=== PATIENT | female | born 1970 | race Caucasian/White ===

== ENCOUNTER 2017-09-02 11:22 | Observation (INO) ==
[2017-09-02] MEDS ORDERED: Ondansetron 4 MG/2 ML VIAL IVP ONE (11:58)
[2017-09-02] MEDS ORDERED: 0.9 % Sodium Chloride 1,000 ML IVC ONE ×2 (11:58→14:04)
--- NOTE | 2017-09-02 12:07 | Emergency Department Note ---
Disposition Clinical Impression: Pyelonephritis Disposition: Admitted As Inpatient Condition: Fair Time of Disposition: 15:10 Abdominal Pain HPI - General Chief Complaint: ED Abdominal Pain Time Seen by Provider: 09/02/17 11:45 Source: patient Nursing Notes Reviewed: Yes Vital Signs Reviewed: Yes - History of Present Illness HPI Narrative: For several weeks Miss Puente has had some right-sided abdominal pain it is worse the last couple of days especially in the right lower portion of the abdomen. She also had nausea vomiting and diarrhea. She noticed the onset of all these symptoms about the same time. Normal bowel habits are once and formed. She has had too numerous to count episodes of diarrhea stool is green and black last couple of days. She still feeling nauseated and has had multiple episodes of emesis. No relief with the belly pain after or during vomiting or diarrhea. No urinary symptoms. She was having some stinging and frequency when she was diagnosed with a urinary tract infection about a month ago and finished 10 days of Cipro last week. She has been dizzy and lightheaded and thinks she might a passed out once or twice in the last couple of days. Virtually no by mouth intake nor she been able to sleep for the last couple of days. She called the squad to bring her here at [facility] for evaluation this morning. She is a diabetic has been for 5 years started out on pills but now is on insulin area and she has an indwelling port that she shows me regarding her history of numerous blood draws. She tells me that she was at [facility] in [place] a couple of months ago but cannot remember why she was transferred there from here at [place]. (Record review does give some evidence of a psychiatric transfer to [place] earlier this year). She tells me her last CAT scan was just a couple of months ago on her abdomen at an outside hospital. (Record review showed 2 CAT scans here so far this year). Pain Scale: 9 - Related Data Home Medications Medication Instructions Recorded Confirmed Gabapentin [Neurontin] 800 mg PO TID 06/09/16 09/02/17 Insulin DETEMIR [Levemir] 45 unit SQ DAILY 06/09/16 09/02/17 Insulin LISPRO [HumaLOG] 0 units SQ TIDAC PRN 06/09/16 09/02/17 ALPRAZolam [Xanax 0.5 MG Tablet] 2 tab PO BID PRN 10/20/16 09/02/17 Allergies Allergy/AdvReac Type Severity Reaction Status Date / Time butorphanol [From Stadol] Allergy Difficulty Verified 09/02/17 15:11 Breathing diflunisal [From Dolobid] Allergy Itching Verified 09/02/17 15:11 meperidine [From Demerol] Allergy Difficulty Verified 09/02/17 15:11 Breathing nalbuphine [From Nubain] Allergy Difficulty Verified 09/02/17 15:11 Breathing Oxycodone [From Percocet] Allergy Itching Verified 09/02/17 15:11 Sulfa (Sulfonamide Allergy Rash Verified 09/02/17 15:11 Antibiotics) tramadol Allergy Itching Verified 09/02/17 15:11 Constitutional: Denies: fever, chills Eyes: Denies: vision change ENT ED: Denies: throat pain, congestion Cardiovascular: Denies: chest pain, palpitations, dyspnea on exertion Respiratory: Denies: cough Gastrointestinal: Reports: abdominal pain, nausea, vomiting, diarrhea, melena. Denies: hematochezia Genitourinary: Denies: urgency, dysuria, frequency, hematuria Musculoskeletal: Reports: back pain (Some radiation of the right-sided pain to the right flank) Integumentary: Denies: rash, lesions Neurological: Reports: other (Dizziness and lightheadedness as per history of present illness) Psychiatric: Reports: anxiety (By history for which she takes Xanax) Endocrine: Reports: fatigue Hematological/Lymphatic: Denies: easy bruising Abdominal Pain PMH - Past Medical History Medical history: Reports: arthritis, diabetes, GERD, kidney stones, osteoporosis , peripheral artery disease, TIA, other Female Surgical History: Reports: appendectomy, cholecystectomy, hysterectomy, orthopedic, other, other LICENSED CLINICIAN history: Reports: no LICENSED CLINICIAN history Psychiatric history: Reports: anxiety, depression - Social History Smoking status: Never smoker Alcohol use: Reports: none Drug use: Reports: none Physical Exam - General Limitations: no limitations General appearance: alert, in no apparent distress - Head Head exam: atraumatic, normocephalic - Eye Eye exam: Present: normal appearance. Absent: scleral icterus, conjunctival injection - ENT ENT exam: mucous membranes dry, normal external ear exam - Neck Neck exam: Present: normal inspection. Absent: lymphadenopathy - Chest Chest inspection: Present: normal inspection, symmetric chest wall rise - Respiratory Respiratory exam: Present: normal lung sounds bilaterally. Absent: respiratory distress, wheezes, stridor - Cardiovascular Cardiovascular exam: Present: regular rate, normal rhythm, normal heart sounds. Absent: systolic murmur, diastolic murmur - Abdominal Exam Abdominal exam: Present: soft, guarding (Voluntary right lower quadrant), normal bowel sounds. Absent: distention Abdominal tenderness: Present: RLQ - Extremities Exam Extremities exam: Present: normal inspection. Absent: pedal edema - Back Exam Back exam: Present: CVA tenderness (R) (Mild. Left CVA not percussed secondary to history of rib fractures.) - Neurological Exam Neurological exam: Present: alert, oriented X3 - Psychiatric Psychiatric exam: Present: normal affect, normal mood - Skin Skin exam: Present: warm, dry, other (Abrasion left wrist which appears to be somewhat excoriated. Hemostatic. No surrounding erythema.) Course Vital Signs Temperature 98.1 F 09/02/17 11:32 Pulse Rate 100 09/02/17 11:32 Respiratory Rate 18 09/02/17 11:32 Blood Pressure 152/77 09/02/17 11:32 O2 Sat by Pulse Oximetry 97 09/02/17 11:32 Temperature 98.1 F 09/02/17 11:32 Pulse Rate 100 09/02/17 11:32 Respiratory Rate 18 09/02/17 11:32 Blood Pressure 152/77 09/02/17 11:32 O2 Sat by Pulse Oximetry 97 09/02/17 11:32 Oxygen Delivery Oxygen Delivery Room Air Abdominal Pain - MDM Narrative Medical decision making narrative: Pyelonephritis. This is the most likely explanation for her symptoms today. Certainly the flank pain radiating to the right side of the abdomen in the absence of an appendix with the findings on urinalysis are suggestive of this diagnosis. She was given 1 g of Rocephin here in the emergency department. Regarding her pain and discomfort she made a couple of request for that. On review of her allergy list however I did inform her that there does not appear to be any safe choice for pain medications. We did review Toradol and I also told her the generic name. She has no recollection of ever receiving this much less having any difficulty breathing. She received 15 mg here in the emergency department and tolerated that well with no untoward effects just prior to transfer to the floor.. Anemia. This appears to have been chronic over several years. There is history of erosive esophagitis that seems to a resolved on follow-up endoscopy upon records review. She is not on an aspirin. We will use low-dose Toradol for pain relief as this is an NSAID. It appears as though she is a candidate for a colonoscopy as this anemia at its current level is undiagnosed and thus far. Certainly if the right lower quadrant pain does not resolve she might be a candidate for more prompt colonoscopy than can be arranged as an outpatient. We will hold heparin and instead put pneumatic stockings on for DVT prophylaxis. Diabetes. She does have a history of poor control. She was 252 here in the emergency department with no evidence of acidosis. We will continue her long acting insulin with a sliding scale as an inpatient. - Medical Records Medical records reviewed: Yes I reviewed the patient's medical records. - Lab Data Lab results reviewed: Yes I reviewed the patient's lab results. Result diagrams: 09/02/17 12:35 09/02/17 12:35 Lab Results 09/02/17 09/02/17 09/02/17 Range/Units 12:01 12:35 12:35 WBC 7.9 (4.3-11.1) K/mcL RBC 3.39 L (3.82-4.97) M/mcL Hgb 9.7 L (11.5-15.4) g/dL Hct 29.6 L (35.3-44.9) % MCV 87.3 (83.0-100.0) fL MCH 28.6 (28.0-33.3) pg MCHC 32.8 (31.6-35.5) g/dL RDW 15.9 H (11.5-14.5) % Plt Count 389 (140-400) K/mcL MPV 8.8 L (9.4-12.4) fL Immature Gran % 0.5 (0-4) % Seg Neutrophils % 69.3 % Lymphocytes % 18.0 % Monocytes % 6.9 % Eosinophils % 4.8 % Basophils % 0.5 % Neutrophils # 5.5 (1.6-8.9) K/mcL Lymphocytes # 1.4 (0.6-4.6) K/mcL Monocytes # 0.6 (0.0-1.3) K/mcL Eosinophils # 0.4 (0.0-0.6) K/mcL Basophils # 0.0 (0.0-0.2) K/mcL VBG pH (7.32-7.42) pH Units VBG pCO2 (41-51) mmHg VBG pO2 (25-50) mmHg VBG HCO3 (21-27) mEq/L VBG Lactic Acid (0.5-2.2) mmol/L Sodium (136-145) mEq/L Potassium (3.5-5.1) mEq/L Chloride (98-107) mEq/L Carbon Dioxide (23-29) mEq/L BUN (6-20) mg/dL Creatinine (0.60-1.20) mg/dL Est GFR ( Amer) (> 60) Est GFR (Non-Af Amer) (> 60) BUN/Creatinine Ratio (6-26) Glucose (70-105) mg/dL Calculated Osmolality (280-300) Lactic Acid 2.7 H (0.5-2.2) mmol/L Calcium (8.6-10.3) mg/dL Total Bilirubin (0.3-1.0) mg/dL AST (13-39) Units/L ALT (7-52) Units/L Alkaline Phosphatase (34-104) Units/L Troponin I (< 0.04) ng/mL Serum Total Protein (6.4-8.9) g/dL Albumin (3.5-5.7) g/dL Globulin (2.4-3.5) g/dL Albumin/Globulin Ratio (1.1-2.2) Beta-Hydroxybutyric Acd (0.02-0.27) mmol/L TSH (0.340-5.600) mcIU/mL Urine Color (Yellow) Urine Clarity (Clear) Urine pH (5.0-8.0) pH Units Ur Specific [place] (1.010-1.025) Urine Protein (Neg-Trace) mg/dL Urine Glucose (UA) (Normal) mg/dL Urine Ketones (Negative) mg/dL Urine Blood (Negative) Urine Nitrite (Negative) Urine Bilirubin (Negative) Urine Urobilinogen (Normal) mg/dL Ur Leukocyte Esterase (Negative) Urine Microscopic RBC (0-3) per hpf Urine Microscopic WBC (0-3) per hpf Ur Squamous Epith Cells (None-Few) per lpf Urine Bacteria (None-Few) per hpf Ur Culture Indicated? (NO) Urine Test Negative (Negative) Urine Opiates Screen (Jjbzfx=778) ng/mL Ur Barbiturates Screen (Ssagbz=191) ng/mL Ur Phencyclidine Scrn (Cutoff=25) ng/mL Ur Amphetamines Screen (Uwiydr=2457) ng/mL U Benzodiazepines Scrn (Ksmtbc=957) ng/mL Urine Cocaine Screen (Cutoff= 300) ng/mL U Marijuana (THC) Screen (Cutoff = 50) ng/mL 09/02/17 09/02/17 09/02/17 Range/Units 12:35 12:35 12:35 WBC (4.3-11.1) K/mcL RBC (3.82-4.97) M/mcL Hgb (11.5-15.4) g/dL Hct (35.3-44.9) % MCV (83.0-100.0) fL MCH (28.0-33.3) pg MCHC (31.6-35.5) g/dL RDW (11.5-14.5) % Plt Count (140-400) K/mcL MPV (9.4-12.4) fL Immature Gran % (0-4) % Seg Neutrophils % % Lymphocytes % % Monocytes % % Eosinophils % % Basophils % % Neutrophils # (1.6-8.9) K/mcL Lymphocytes # (0.6-4.6) K/mcL Monocytes # (0.0-1.3) K/mcL Eosinophils # (0.0-0.6) K/mcL Basophils # (0.0-0.2) K/mcL VBG pH (7.32-7.42) pH Units VBG pCO2 (41-51) mmHg VBG pO2 (25-50) mmHg VBG HCO3 (21-27) mEq/L VBG Lactic Acid (0.5-2.2) mmol/L Sodium 129 L (136-145) mEq/L Potassium 3.9 (3.5-5.1) mEq/L Chloride 94 L (98-107) mEq/L Carbon Dioxide 25 (23-29) mEq/L BUN 6 (6-20) mg/dL Creatinine 0.75 (0.60-1.20) mg/dL Est GFR ( Amer) > 60 (> 60) Est GFR (Non-Af Amer) > 60 (> 60) BUN/Creatinine Ratio 8 (6-26) Glucose 252 H (70-105) mg/dL Calculated Osmolality 274 L (280-300) Lactic Acid (0.5-2.2) mmol/L Calcium 9.0 (8.6-10.3) mg/dL Total Bilirubin 0.3 (0.3-1.0) mg/dL AST 17 (13-39) Units/L ALT 11 (7-52) Units/L Alkaline Phosphatase 215 H (34-104) Units/L Troponin I < 0.03 (< 0.04) ng/mL Serum Total Protein 7.5 (6.4-8.9) g/dL Albumin 3.6 (3.5-5.7) g/dL Globulin 3.9 H (2.4-3.5) g/dL Albumin/Globulin Ratio 0.9 L (1.1-2.2) Beta-Hydroxybutyric Acd < 0.10 (0.02-0.27) mmol/L TSH 0.903 (0.340-5.600) mcIU/mL Urine Color (Yellow) Urine Clarity (Clear) Urine pH (5.0-8.0) pH Units Ur Specific [place] (1.010-1.025) Urine Protein (Neg-Trace) mg/dL Urine Glucose (UA) (Normal) mg/dL Urine Ketones (Negative) mg/dL Urine Blood (Negative) Urine Nitrite (Negative) Urine Bilirubin (Negative) Urine Urobilinogen (Normal) mg/dL Ur Leukocyte Esterase (Negative) Urine Microscopic RBC (0-3) per hpf Urine Microscopic WBC (0-3) per hpf Ur Squamous Epith Cells (None-Few) per lpf Urine Bacteria (None-Few) per hpf Ur Culture Indicated? (NO) Urine Test (Negative) Urine Opiates Screen (Fbxjkt=231) ng/mL Ur Barbiturates Screen (Eaasoe=213) ng/mL Ur Phencyclidine Scrn (Cutoff=25) ng/mL Ur Amphetamines Screen (Xeukym=4504) ng/mL U Benzodiazepines Scrn (Xqhiim=330) ng/mL Urine Cocaine Screen (Cutoff= 300) ng/mL U Marijuana (THC) Screen (Cutoff = 50) ng/mL 09/02/17 09/02/17 09/02/17 Range/Units 13:15 13:21 14:19 WBC (4.3-11.1) K/mcL RBC (3.82-4.97) M/mcL Hgb (11.5-15.4) g/dL Hct (35.3-44.9) % MCV (83.0-100.0) fL MCH (28.0-33.3) pg MCHC (31.6-35.5) g/dL RDW (11.5-14.5) % Plt Count (140-400) K/mcL MPV (9.4-12.4) fL Immature Gran % (0-4) % Seg Neutrophils % % Lymphocytes % % Monocytes % % Eosinophils % % Basophils % % Neutrophils # (1.6-8.9) K/mcL Lymphocytes # (0.6-4.6) K/mcL Monocytes # (0.0-1.3) K/mcL Eosinophils # (0.0-0.6) K/mcL Basophils # (0.0-0.2) K/mcL VBG pH 7.42 (7.32-7.42) pH Units VBG pCO2 38 L (41-51) mmHg VBG pO2 39 (25-50) mmHg VBG HCO3 24 (21-27) mEq/L VBG Lactic Acid 2.7 H (0.5-2.2) mmol/L Sodium (136-145) mEq/L Potassium (3.5-5.1) mEq/L Chloride (98-107) mEq/L Carbon Dioxide (23-29) mEq/L BUN (6-20) mg/dL Creatinine (0.60-1.20) mg/dL Est GFR ( Amer) (> 60) Est GFR (Non-Af Amer) (> 60) BUN/Creatinine Ratio (6-26) Glucose (70-105) mg/dL Calculated Osmolality (280-300) Lactic Acid (0.5-2.2) mmol/L Calcium (8.6-10.3) mg/dL Total Bilirubin (0.3-1.0) mg/dL AST (13-39) Units/L ALT (7-52) Units/L Alkaline Phosphatase (34-104) Units/L Troponin I (< 0.04) ng/mL Serum Total Protein (6.4-8.9) g/dL Albumin (3.5-5.7) g/dL Globulin (2.4-3.5) g/dL Albumin/Globulin Ratio (1.1-2.2) Beta-Hydroxybutyric Acd (0.02-0.27) mmol/L TSH (0.340-5.600) mcIU/mL Urine Color Yellow (Yellow) Urine Clarity Clear (Clear) Urine pH 5.0 (5.0-8.0) pH Units Ur Specific [place] <= 1.005 L (1.010-1.025) Urine Protein Negative (Neg-Trace) mg/dL Urine Glucose (UA) Normal (Normal) mg/dL Urine Ketones Negative (Negative) mg/dL Urine Blood Trace-lysed H (Negative) Urine Nitrite Negative (Negative) Urine Bilirubin Negative (Negative) Urine Urobilinogen Normal (Normal) mg/dL Ur Leukocyte Esterase Large H (Negative) Urine Microscopic RBC 3-5 H (0-3) per hpf Urine Microscopic WBC 50-100 H (0-3) per hpf Ur Squamous Epith Cells Few (None-Few) per lpf Urine Bacteria Many H (None-Few) per hpf Ur Culture Indicated? YES A (NO) Urine Test (Negative) Urine Opiates Screen (Tkzzob=076) ng/mL Ur Barbiturates Screen (Hqebcd=834) ng/mL Ur Phencyclidine Scrn (Cutoff=25) ng/mL Ur Amphetamines Screen (Yqqghn=6805) ng/mL U Benzodiazepines Scrn (Wiquwq=591) ng/mL Urine Cocaine Screen (Cutoff= 300) ng/mL U Marijuana (THC) Screen (Cutoff = 50) ng/mL 09/02/17 Range/Units 14:19 WBC (4.3-11.1) K/mcL RBC (3.82-4.97) M/mcL Hgb (11.5-15.4) g/dL Hct (35.3-44.9) % MCV (83.0-100.0) fL MCH (28.0-33.3) pg MCHC (31.6-35.5) g/dL RDW (11.5-14.5) % Plt Count (140-400) K/mcL MPV (9.4-12.4) fL Immature Gran % (0-4) % Seg Neutrophils % % Lymphocytes % % Monocytes % % Eosinophils % % Basophils % % Neutrophils # (1.6-8.9) K/mcL Lymphocytes # (0.6-4.6) K/mcL Monocytes # (0.0-1.3) K/mcL Eosinophils # (0.0-0.6) K/mcL Basophils # (0.0-0.2) K/mcL VBG pH (7.32-7.42) pH Units VBG pCO2 (41-51) mmHg VBG pO2 (25-50) mmHg VBG HCO3 (21-27) mEq/L VBG Lactic Acid (0.5-2.2) mmol/L Sodium (136-145) mEq/L Potassium (3.5-5.1) mEq/L Chloride (98-107) mEq/L Carbon Dioxide (23-29) mEq/L BUN (6-20) mg/dL Creatinine (0.60-1.20) mg/dL Est GFR ( Amer) (> 60) Est GFR (Non-Af Amer) (> 60) BUN/Creatinine Ratio (6-26) Glucose (70-105) mg/dL Calculated Osmolality (280-300) Lactic Acid (0.5-2.2) mmol/L Calcium (8.6-10.3) mg/dL Total Bilirubin (0.3-1.0) mg/dL AST (13-39) Units/L ALT (7-52) Units/L Alkaline Phosphatase (34-104) Units/L Troponin I (< 0.04) ng/mL Serum Total Protein (6.4-8.9) g/dL Albumin (3.5-5.7) g/dL Globulin (2.4-3.5) g/dL Albumin/Globulin Ratio (1.1-2.2) Beta-Hydroxybutyric Acd (0.02-0.27) mmol/L TSH (0.340-5.600) mcIU/mL Urine Color (Yellow) Urine Clarity (Clear) Urine pH (5.0-8.0) pH Units Ur Specific [place] (1.010-1.025) Urine Protein (Neg-Trace) mg/dL Urine Glucose (UA) (Normal) mg/dL Urine Ketones (Negative) mg/dL Urine Blood (Negative) Urine Nitrite (Negative) Urine Bilirubin (Negative) Urine Urobilinogen (Normal) mg/dL Ur Leukocyte Esterase (Negative) Urine Microscopic RBC (0-3) per hpf Urine Microscopic WBC (0-3) per hpf Ur Squamous Epith Cells (None-Few) per lpf Urine Bacteria (None-Few) per hpf Ur Culture Indicated? (NO) Urine Test (Negative) Urine Opiates Screen Negative (Yiamwe=918) ng/mL Ur Barbiturates Screen Negative (Bsgftp=424) ng/mL Ur Phencyclidine Scrn Negative (Cutoff=25) ng/mL Ur Amphetamines Screen Negative (Wmcfpf=1232) ng/mL U Benzodiazepines Scrn Negative (Xngjsz=098) ng/mL Urine Cocaine Screen Negative (Cutoff= 300) ng/mL U Marijuana (THC) Screen Negative (Cutoff = 50) ng/mL
[2017-09-02 12:56] LABS: Basophils % 0.5 %; Eosinophils # 0.4 K/mcL (0.0-0.6); Eosinophils % 4.8 %; Hematocrit 29.6 % (35.3-44.9); Hemoglobin 9.7 g/dL (11.5-15.4); Immature Granulocytes % 0.5 % (0-4); Lymphocytes # 1.4 K/mcL (0.6-4.6); Mean Corpuscular HGB Conc 32.8 g/dL (31.6-35.5); Mean Corpuscular Hemoglobin 28.6 pg (28.0-33.3); Mean Corpuscular Volume 87.3 fL (83.0-100.0); Mean Platelet Volume 8.8 fL (9.4-12.4); Monocytes # 0.6 K/mcL (0.0-1.3); Monocytes % 6.9 %; Neutrophils # 5.5 K/mcL (1.6-8.9); Platelet Count 389 K/mcL (140-400); Red Blood Count 3.39 M/mcL (3.82-4.97); Red Cell Distribution Width 15.9 % (11.5-14.5); Segmented Neutrophils % 69.3 %
[2017-09-02 13:12] LABS: Troponin I < 0.03 ng/mL (< 0.04)
[2017-09-02 13:14] LABS: Alanine Aminotransferase 11 Units/L (7-52); Albumin 3.6 g/dL (3.5-5.7); Albumin/Globulin Ratio 0.9 (1.1-2.2); Alkaline Phosphatase 215 Units/L (34-104); Aspartate Amino Transferase 17 Units/L (13-39); BUN/Creatinine Ratio 8 (6-26); Bilirubin,Total 0.3 mg/dL (0.3-1.0); Blood Urea Nitrogen 6 mg/dL (6-20); Carbon Dioxide 25 mEq/L (23-29); Chloride 94 mEq/L (98-107); Globulin 3.9 g/dL (2.4-3.5); Glucose 252 mg/dL (70-105); Osmolality,Calculated 274 (280-300); Potassium 3.9 mEq/L (3.5-5.1); Sodium 129 mEq/L (136-145); Total Protein 7.5 g/dL (6.4-8.9); eGFR For African Americans > 60 (> 60); eGFR For Non-African Americans > 60 (> 60)
[2017-09-02 13:21] LABS: VBG HCO3 24 mEq/L (21-27); VBG PCO2 38 mmHg (41-51); VBG PH 7.42 pH Units (7.32-7.42); VBG PO2 39 mmHg (25-50)
[2017-09-02] MEDS ORDERED: *HR* Promethazine 25 MG/ML VIAL IVP ONE (13:32)
[2017-09-02 14:28] LABS: Bilirubin,Urine Negative (Negative); Blood,Urine Trace-lysed (Negative); Clarity,Urine Clear (Clear); Color,Urine Yellow (Yellow); Glucose,Urine (UA) Normal (Normal); Ketones,Urine Negative (Negative); Leukocyte Esterase,Urine Large (Negative); Nitrite,Urine Negative (Negative); Protein,Urine Negative (Neg-Trace); Specific Gravity,Urine <= 1.005 (1.010-1.025); Urobilinogen,Urine Normal (Normal)
[2017-09-02 14:38] LABS: Bacteria,Urine Many per hpf (None-Few); Squamous Epithelial Cell,Urine Few per lpf (None-Few); WBC,Urine 50-100 per hpf (0-3)
[2017-09-02 14:43] LABS: Amphetamine Screen,Urine Negative ng/mL (Cutoff=1000); Barbiturate Screen,Urine Negative ng/mL (Cutoff=200); Benzodiazepines Screen,Urine Negative ng/mL (Cutoff=200); Cannabinoid Screen,Urine Negative ng/mL (Cutoff = 50); Cocaine Screen,Urine Negative ng/mL (Cutoff= 300); Opiate Screen,Urine Negative ng/mL (Cutoff=300); Phencyclidine Screen,Urine Negative ng/mL (Cutoff=25)
[2017-09-02] MEDS ORDERED: cefTRIAXone 1,000 MG in Water for inj. (sterile) 20 ML 10 ML IVP ONE ×2 (14:57→15:38)
[2017-09-02] MEDS ORDERED: Ketorolac 30 MG/ML VIAL IVP ONE ×2 (15:03→15:38)
[2017-09-02] MEDS ORDERED: Naloxone 0.4 MG/ML INJ IVP PRN (15:38)
--- NOTE | 2017-09-02 16:14 | Internal Med History&Physical ---
Date of Encounter: 09/02/17 Time of Encounter: 16:06 Assessment and Plan (1) Pyelonephritis Current visit: Yes Status: Acute Pt presents with c/o right abd flank pain, fever/chills and frequency. Recent Tx for UTI. UA shows positive and patient was treated with Rocephin in ED. Will continie with current ATB witih culture pending. Continue with fluid resuscitation. Currently is afebrile and VSS. (2) Diabetes Current visit: No Status: Acute Patient with long history of poorly controlled DM. Today presents with FS 252. Will continue with home long acting coverage and start on FS with SSI. 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 PResents with hgb 9.7. Will continue to monitor with serial labs while here. Qualifiers: Anemia type: unspecified type Qualified Code(s): D64.9 - Anemia, unspecified Internal Medicine - H&P: HPI Chief complaint: pyelonephritis Admitted From: Home Plans for Post Hospital Care: Home History of present illness: Ms. Puente is a 47 year old female, who has had some right-sided abdominal pain it is worse the last couple of days especially in the right lower portion of the abdomen. She states that she has noticed an occasional intermittent sharp pain to her right abd flank over the past few weeks. Over the last few days the pain became more constant and she began with nausea vomiting and diarrhea. Pt c/o tenderness to the RUQ during light palpation and noted gaurding. She states that through day she has had no relief with the belly pain. She was having some stinging and frequency when she was diagnosed with a urinary tract infection about a month ago and finished 10 days of Cipro last week. She denies any dysuria during this episode, but does endorse frequency. States that she has had a fever and chills today also. She is a diabetic has been for 5 years started out on pills but now is on insulin area and she has an indwelling port that she shows me regarding her history of numerous blood draws. She states that her fingerstick have been reading higher than usual over the last few days and today was over 500. Pt's glucose was taken in the ED today and read 252. Pt has been afebrile while here in the ED. Pt was medicated with Toradol for pain in the ED and given a dose of Rocephin. VSS. Labs did show lactic acid of 2.7. U/A show positive with culture pending. Pt c/o diarrhea for last several days, but BS were normal. Past Med Surg Social Fam HX - Past Medical History Source: patient Medical history: arthritis, diabetes, GERD, kidney stones, osteoporosis, peripheral artery disease, TIA, other Psychiatric history: anxiety, depression - Past Surgical History Surgical History: appendectomy, cholecystectomy, hysterectomy, orthopedic, other - Social History Smoking Status: Never smoker Smokeless Tobacco Status: No Alcohol use: none Drug use: none - Family History Mother Race: Living Status: Still Living Hx Family Cardiac Disorders: No Hx Family Respiratory Disorders: Yes (Father wore oxygen) Hx Family Cancer: No Hx Family GI Disorders: No Hx Family Endocrine Disorder: Yes (Thyroid disease and type 2 diabetes) Hx Family Neuromuscular Disorders: No Hx Family Neurologic Disorders: No Hx Family HEENT Disorders: No Hx Family Autoimmune Disorders: No Father Hx Family Respiratory Disorders: Yes (Wore oxygen) Internal Medicine - H&P: Meds Gabapentin [Neurontin] 800 mg PO TID 06/09/16 [History] Insulin DETEMIR [Levemir] 45 unit SQ DAILY 06/09/16 [History] Insulin LISPRO [HumaLOG] 0 units SQ TIDAC PRN 06/09/16 [History] ALPRAZolam [Xanax 0.5 MG Tablet] 2 tab PO BID PRN 10/20/16 [History] 3 Allergy/AdvReac Type Severity Reaction Status Date / Time butorphanol [From Stadol] Allergy Difficulty Verified 09/02/17 15:11 Breathing diflunisal [From Dolobid] Allergy Itching Verified 09/02/17 15:11 meperidine [From Demerol] Allergy Difficulty Verified 09/02/17 15:11 Breathing nalbuphine [From Nubain] Allergy Difficulty Verified 09/02/17 15:11 Breathing Oxycodone [From Percocet] Allergy Itching Verified 09/02/17 15:11 Sulfa (Sulfonamide Allergy Rash Verified 09/02/17 15:11 Antibiotics) tramadol Allergy Itching Verified 09/02/17 15:11 All Systems PM: A 10-system review of systems was performed and is negative for pertinent findings except as documented above in the HPI. - Constitutional Constitutional: as per HPI, no chills, no fever(s), no night sweats - EENT Eyes: no change in vision, no discharge, no pain, no photophobia Ears: no ear discharge, no ear pain, no tinnitus Nose, mouth and throat: no dysphagia, no nasal discharge, no neck pain, no sore throat - Cardiovascular Cardiovascular ROS IM: as per HPI, no chest pain, no diaphoresis, no dyspnea, no lightheadedness, no palpitations, no syncope - Respiratory Respiratory: as per HPI, no cough, no dyspnea, no wheezing, no excessive phlegm production - Gastrointestinal Gastrointestinal: as per HPI, abdominal pain, no diarrhea, no hematemesis, no hematochezia, no melena, no nausea, no vomiting - Genitourinary Genitourinary: as per HPI, other (frequency), no change in urinary stream, no dysuria, no flank pain, no hematuria - Musculoskeletal Musculoskeletal ROS IM: no numbness, no tingling - Integumentary Integumentary IM: no rash, no unusual bruising - Neurological Neurological ROS: no confusion, no convulsions, no focal weakness, no numbness, no tingling, no tremor(s) - Hematologic/Lymphatic Hematologic/Lymphatic: no easy bruising - Constitutional Vitals: Temp Pulse Resp BP Pulse Ox 98 F 100 18 154/87 97 09/02/17 16:03 09/02/17 11:32 09/02/17 16:03 09/02/17 16:03 09/02/17 11:32 General appearance: Present: A&O X 3 - Head Head exam: Present: atraumatic, normocephalic - Eye Eye exam: Present: PERRL, conjuntiva pink, sclera anicteric Pupils: Present: PERRL - Neck Neck exam general surgery: Present: supple, trachea midline. Absent: lymphadenopathy - Respiratory Respiratory exam: Present: CTAB. Absent: accessory muscle use, rales, rhonchi, wheezes - Cardiovascular Cardiovascular exam: Present: RRR, +S1, +S2. Absent: diastolic murmur, gallop, rubs, systolic murmur Additional comments: Right subclavian mediport. - GI/Abdominal GI/Abdominal exam: Present: normal bowel sounds, soft, no peritoneal signs. Absent: distended, tenderness Additional comments: Patient c/o tenderness during palpation of RUQ and noted gaurding. Abd is nondistended. - Extremities Exam Extremities exam: Present: warm, radial pulses palpable and symmetrical. Absent : calf tenderness, cyanotic, pedal edema - Neurological Exam Neurological exam: Present: CN II-XII intact, oriented X3, no focal deficits. Absent: pronater drift, facial droop, speech deficit - Skin Skin exam: Present: dry, intact Internal Med - H&P Results - Labs CBC & Chem 7: 09/02/17 12:35 09/02/17 12:35 - VTE Reasons for not Prescribing Prophylaxis: Medical contraindication
[2017-09-02] MEDS ORDERED: D5% in Water 1,000 ML IVC PRN (16:43)
[2017-09-02] MEDS ORDERED: Dextrose Gel 15 GM PO PRN ×2 (16:43)
[2017-09-02] MEDS ORDERED: *HR* Dextrose 50 % in Water (Syg) 50 ML SYRINGE IVP PRN (16:43)
[2017-09-02] MEDS: 0.9 % Sodium Chloride 1,000 ML IVC SCH (17:33)
[2017-09-02] MEDS: Acetaminophen 325 MG TABLET PO PRN (20:11)
[2017-09-02] MEDS: *HR* Promethazine 25 MG/ML VIAL IVP PRN (20:11)
[2017-09-02] MEDS: ALPRAZolam 1 MG TABLET PO PRN (20:11)
[2017-09-02] MEDS: Insulin LISPRO 300 UNITS/3 ML VIAL SQ SCH (20:45)
[2017-09-02] MEDS: Ketorolac 30 MG/ML VIAL IVP PRN (21:56)
[2017-09-03] MEDS: 0.9 % Sodium Chloride 1,000 ML IVC SCH (00:04)
[2017-09-03] MEDS: ALPRAZolam 1 MG TABLET PO PRN ×3 (05:13→20:49)
[2017-09-03] MEDS: Ondansetron 4 MG/2 ML VIAL IVP PRN (05:13)
[2017-09-03] MEDS: Ketorolac 30 MG/ML VIAL IVP PRN ×3 (05:14→20:50)
[2017-09-03 05:23] LABS: Basophils # 0.1 K/mcL (0.0-0.2); Basophils % 0.6 %; Eosinophils % 22.3 %; Hematocrit 25.9 % (35.3-44.9); Hemoglobin 8.4 g/dL (11.5-15.4); Immature Granulocytes % 0.2 % (0-4); Lymphocytes % 22.7 %; Mean Corpuscular HGB Conc 32.4 g/dL (31.6-35.5); Mean Corpuscular Hemoglobin 28.6 pg (28.0-33.3); Mean Corpuscular Volume 88.1 fL (83.0-100.0); Mean Platelet Volume 8.6 fL (9.4-12.4); Monocytes # 0.6 K/mcL (0.0-1.3); Monocytes % 7.3 %; Neutrophils # 4.1 K/mcL (1.6-8.9); Platelet Count 308 K/mcL (140-400); Red Blood Count 2.94 M/mcL (3.82-4.97); Red Cell Distribution Width 15.7 % (11.5-14.5); Segmented Neutrophils % 46.9 %
[2017-09-03 05:39] LABS: Anisocytosis 1+ (Not Present); Poikilocytosis 1+ (Not Present)
[2017-09-03 05:42] LABS: BUN/Creatinine Ratio 7 (6-26); Blood Urea Nitrogen 4 mg/dL (6-20); Calcium 7.9 mg/dL (8.6-10.3); Carbon Dioxide 24 mEq/L (23-29); Chloride 103 mEq/L (98-107); Glucose 117 mg/dL (70-105); Osmolality,Calculated 276 (280-300); Potassium 3.4 mEq/L (3.5-5.1); Sodium 134 mEq/L (136-145); eGFR For African Americans > 60 (> 60); eGFR For Non-African Americans > 60 (> 60)
[2017-09-03] MEDS: Insulin LISPRO 300 UNITS/3 ML VIAL SQ SCH ×4 (08:12→20:50)
[2017-09-03] MEDS: Insulin DETEMIR 100 UNIT/ML X5UNITS SQ SCH (11:21)
[2017-09-03] MEDS: *HR* Promethazine 25 MG/ML VIAL IVP PRN ×2 (13:16→20:49)
[2017-09-03] MEDS: Acetaminophen 325 MG TABLET PO PRN (14:30)
[2017-09-03] MEDS ORDERED: cefTRIAXone 1,000 MG in Water for inj. (sterile) 20 ML 10 ML IVP SCH (15:00)
[2017-09-03] MEDS ORDERED: *HR* HYDROcodone/Acet 10/325 mg TABLET PO PRN (15:15)
--- NOTE | 2017-09-03 15:17 | Internal Med Progress Note ---
Date of Encounter: 09/03/17 Time of Encounter: 15:15 - Assessment and plan (1) Pyelonephritis Current Visit: Yes Status: Acute Assessment and plan: continue atb. monitor. WBC normal (2) Diabetes Current Visit: No Status: Acute Assessment and plan: monitor FSBS. will adjust meds as necessary. 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 will try norco for pain, states she takes this at home. pt was able to eat lunch tray. denies NVD. no fever or chills. WBC count normal. will discuss discharging to home today. continue ATB - Constitutional Vitals: Temp Pulse Resp BP Pulse Ox 97.8 F 99 18 144/84 98 09/03/17 11:11 09/03/17 11:11 09/03/17 11:11 09/03/17 11:11 09/03/17 11:11 General appearance: Present: A&O X 3, pleasant, no acute distress, answers questions appropriately - Head Head exam: Present: atraumatic, normocephalic - Eye Eye exam: Present: PERRL, conjuntiva pink, sclera anicteric Pupils: Present: PERRL - Neck Neck exam general surgery: Present: supple, trachea midline. Absent: lymphadenopathy - Respiratory Respiratory exam: Present: CTAB. Absent: accessory muscle use, rales, rhonchi, wheezes - Cardiovascular Cardiovascular exam: Present: RRR, +S1, +S2. Absent: diastolic murmur, gallop, rubs, systolic murmur - GI/Abdominal GI/Abdominal exam: Present: normal bowel sounds, soft, no peritoneal signs. Absent: distended, tenderness Additional comments: pain to right abd with slight palpation. abd soft, nondistended. BS + X4 - Extremities Exam Extremities exam: Present: warm, radial pulses palpable and symmetrical. Absent : calf tenderness, cyanotic, pedal edema - Neurological Exam Neurological exam: Present: CN II-XII intact, oriented X3, no focal deficits. Absent: pronater drift, facial droop, speech deficit - Skin Skin exam: Present: dry, intact Internal Medicine: Result - Labs CBC & Chem 7: 09/03/17 05:10 09/03/17 05:10 Labs: Short CBC 09/03/17 Range/Units 05:10 WBC 8.8 (4.3-11.1) K/mcL Hgb 8.4 L (11.5-15.4) g/dL Hct 25.9 L (35.3-44.9) % Plt Count 308 (140-400) K/mcL Neutrophils # 4.1 (1.6-8.9) K/mcL BMP 09/03/17 05:10 Sodium 134 L Potassium 3.4 L Chloride 103 Carbon Dioxide 24 BUN 4 L Creatinine 0.60 Glucose 117 H Calcium 7.9 L - VTE Reasons for not Prescribing Prophylaxis: Medical contraindication Documentation of Mechanical Device: Intermittent pneumatic compression device Consult Discharge Plan - Plan Instructions: Urinary Tract Infection in Women (DC) Referrals: Mike Stone, PAC [Primary Care Provider] -
[2017-09-03] MEDS: *HR* HYDROcodone/Acet 7.5/325 mg TABLET PO PRN (16:21)
--- NOTE | 2017-09-03 16:41 | Electrocardiograph Report ---
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
[2017-09-04] MEDS: Ondansetron 4 MG/2 ML VIAL IVP PRN (02:22)
[2017-09-04] MEDS: *HR* HYDROcodone/Acet 7.5/325 mg TABLET PO PRN ×2 (02:23→09:07)
[2017-09-04] MEDS: *HR* Promethazine 25 MG/ML VIAL IVP PRN (05:58)
[2017-09-04] MEDS: Ketorolac 30 MG/ML VIAL IVP PRN (05:59)
[2017-09-04] MEDS: ALPRAZolam 1 MG TABLET PO PRN (05:59)
[2017-09-04] MEDS: Insulin DETEMIR 100 UNIT/ML X5UNITS SQ SCH (08:58)
[2017-09-04] MEDS: Insulin LISPRO 300 UNITS/3 ML VIAL SQ SCH ×2 (09:14→13:34)
[2017-09-04 11:45] VITALS: BP 99/72
--- NOTE | 2017-09-04 14:17 | Discharge Summary ---
Date of Encounter: 09/04/17 Time of Encounter: 14:15 - Discharge Diagnosis (1) Pyelonephritis Priority: Primary Status: Acute Comments: Will discharge Keflex 500 mg for times a day for 7 days. Will discharge script for [place] PRN for 5 days. (2) Diabetes Priority: Primary Status: Acute Comments: Controlled with insulin. Follow up with PCP. Continue current medications. 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 Puente is a 47 year old female discharging to home after being treated for UTI\pyelonephritis. Patient continues to complain of abdominal pain that radiates to right flank area. Pain is controlled and relieved by [place]. Patient has been able to the all meals yesterday and today, asking for 2nd tray today. States she does have nausea. Which is relieved by Phenergan or zofran. No vomiting or diarrhea. Denies fever or chills. - Time Spent with Patient Total time spent providing and/or coordinating discharge services: - Discharge Medications Home Medications: Gabapentin [Neurontin] 800 mg PO TID 06/09/16 [History] Insulin DETEMIR [Levemir] 45 unit SQ DAILY 06/09/16 [History] Insulin LISPRO [HumaLOG] 0 units SQ TIDAC PRN 06/09/16 [History] ALPRAZolam [Xanax 0.5 MG Tablet] 2 tab PO BID PRN 10/20/16 [History] Acetaminophen [Tylenol] 650 mg PO Q6HR PRN tablet 09/04/17 [Rx] HYDROcodone/Acet 7.5/325 mg [[place] 7.5-325 mg] 1 tab PO Q6HR PRN 5 Days #20 tablet 09/04/17 [Rx] cephALEXin [Keflex] 500 mg PO QID 7 Days #28 capsule 09/04/17 [Rx] Allergies/Adverse Reactions: 3 Allergy/AdvReac Type Severity Reaction Status Date / Time butorphanol [From Stadol] Allergy Difficulty Verified 09/02/17 15:11 Breathing diflunisal [From Dolobid] Allergy Itching Verified 09/02/17 15:11 meperidine [From Demerol] Allergy Difficulty Verified 09/02/17 15:11 Breathing nalbuphine [From Nubain] Allergy Difficulty Verified 09/02/17 15:11 Breathing Oxycodone [From Percocet] Allergy Itching Verified 09/02/17 15:11 Sulfa (Sulfonamide Allergy Rash Verified 09/02/17 15:11 Antibiotics) tramadol Allergy Itching Verified 09/02/17 15:11 Date of admission: 09/02/17 15:55 Primary care physician: Mike Stone Discharging clinician: Adarsh Hogue Anticipated date of discharge: 09/04/17 - Constitutional Vitals: Temp Pulse Resp BP Pulse Ox 97.7 F 94 16 99/72 97 09/04/17 11:00 09/04/17 11:00 09/04/17 11:00 09/04/17 11:00 09/04/17 11:00 General appearance: Present: A&O X 3, pleasant, no acute distress, answers questions appropriately - Head Head exam: Present: atraumatic, normocephalic - Eye Eye exam: Present: PERRL, conjuntiva pink, sclera anicteric Pupils: Present: PERRL - Neck Neck exam general surgery: Present: supple, trachea midline. Absent: lymphadenopathy - Respiratory Respiratory exam: Present: CTAB. Absent: accessory muscle use, rales, rhonchi, wheezes - Cardiovascular Cardiovascular exam: Present: RRR, +S1, +S2. Absent: diastolic murmur, gallop, rubs, systolic murmur - GI/Abdominal GI/Abdominal exam: Present: normal bowel sounds, soft, no peritoneal signs. Absent: distended, tenderness Additional comments: Right abdominal tenderness with light palpation. - Extremities Exam Extremities exam: Present: warm, radial pulses palpable and symmetrical. Absent : calf tenderness, cyanotic, pedal edema - Neurological Exam Neurological exam: Present: CN II-XII intact, oriented X3, no focal deficits. Absent: pronater drift, facial droop, speech deficit - Skin Skin exam: Present: dry, intact - Patient Status Disposition: Home, Self-Care Condition: Good Functional capacity at discharge: independent ambulation Overall status at discharge: patient is progressing back to baseline - Discharge Instructions Instructions: Urinary Tract Infection in Women (DC) Follow Up With: Mike Stone PAC [Primary Care Provider] - - Diet and Activity Diet: advance to your usual diet - VTE Reasons for not Prescribing Prophylaxis: Medical contraindication Documentation of Mechanical Device: Intermittent pneumatic compression device
== END 2017-09-04 14:39 | disposition home or self-care (01) ==
LOC: INPGRE 11:22 → EMEROOGRE 11:22 → INPGRE 16:06